=== PATIENT | female | born 1990 ===

== ENCOUNTER → 2016-03-29 | Outpatient (CLI) | payer OTHER ==
[~2016-03-29] MED LIST: MTR600X PO; OXYC-57 PO; PRENTAB26 PO
[2016-03-31 13:33] LABS: AFP CONCENTRATION 51.8 NG/ML; AFP MULTIPLE OF MEDIAN 1.37; AFPTS GESTATIONAL AGE 17.1 WEEKS; AFPTS INSULIN DEP DIABETIC? NO; AFPTS MATERNAL WT 151 LBS; ALPHA-FETOPROTEIN RACE CAUCASIAN=W; ESTRIOL MULTIPLE OF MEDIAN 0.94; HISTORY OF NTD NO; INHIBIN A 417 PG/ML; INHIBIN A MOM 2.52; REPEAT SAMPLE? NO; hCG MULTIPLE OF MEDIAN 0.63
== END | disposition home or self-care (01) ==
LOC: C.LAB1850 14:28
PROVIDERS: ATTEND Obstetrics & Gynecology
DX: Z34.82 Encounter for supervision of other normal pregnancy, second trimester (principal)

== ENCOUNTER 2016-06-10 18:37 | Outpatient (CLI) | payer OTHER ==
[~2016-06-10] VITALS: Ht 157.5 cm; Wt 75.8 kg
[2016-06-10] MEDS ORDERED: PRENTAB26 PO (19:45)
[2016-06-10 19:46] VITALS: Ht 157.5 cm; Wt 75.8 kg
== END 2016-06-10 19:50 | disposition home or self-care (01) ==
LOC: C.OBG 18:37 → C.OPB 18:37 → C.LD 19:00 → C.OPB 19:50
PROVIDERS: ATTEND Obstetrics & Gynecology
DX: Z34.82 Encounter for supervision of other normal pregnancy, second trimester (principal); Z3A.27 27 weeks gestation of pregnancy

== ENCOUNTER → 2016-06-18 | Outpatient (CLI) | payer OTHER ==
[2016-06-18 12:12] LABS: HEMATOCRIT 31.2 % (37-47)
[2016-06-18 14:05] LABS: GTGD 50 Grams
== END | disposition home or self-care (01) ==
LOC: C.LAB1850 09:38
PROVIDERS: ATTEND Obstetrics & Gynecology
DX: Z34.83 Encounter for supervision of other normal pregnancy, third trimester (principal)

== ENCOUNTER → 2016-06-18 | Outpatient (CLI) | payer OTHER ==
[2016-06-18 14:58] LABS: URINE APPEARANCE CLEAR (CLEAR); URINE BILIRUBIN NEG (NEG); URINE COLOR YELLOW; URINE EPITHELIAL CELL AUTO >30 /lpf (0-5); URINE NITRITE NEG (NEG); URINE PH 7.5 (4.5-7.5); URINE SPECIFIC GRAVITY 1.009 (1.000-1.030); UROBILINOGEN NEG (NEG)
[2016-06-18 15:05] LABS: MANUAL MICROSCOPIC REQUIRED? NO; REVIEW REQ? NO
== END | disposition home or self-care (01) ==
LOC: C.LABSPEC 13:41
PROVIDERS: ATTEND Obstetrics & Gynecology
DX: Z34.83 Encounter for supervision of other normal pregnancy, third trimester (principal)

== ENCOUNTER → 2016-08-12 | Outpatient (CLI) | payer OTHER | END | disposition home or self-care (01) | LOC: C.LABSPEC 17:43 | PROVIDERS: ATTEND Obstetrics & Gynecology | DX: Z34.83 Encounter for supervision of other normal pregnancy, third trimester (principal) ==

== ENCOUNTER 2016-08-25 08:47 | Inpatient (IN) | payer OTHER ==
[2016-08-25] VITALS (14 sets, daily range): BP systolic 104–118; BP diastolic 58–65; PULSE 55–68; TEMP 36.5–37.1; O2SAT 96–100; Wt 71.7 kg
[~2016-08-25 08:47] MED LIST changes: -MTR600X PO; -OXYC-57 PO
[2016-08-25] MEDS ORDERED: CITRIC ACID/SODIUM CITRATE 15 ML UDC PO ONE (09:00)
[2016-08-25] MEDS ORDERED: CEFAZOLIN IV 2,000 MG in DEXTROSE 5% 50ML 50 ML IV SCH (09:00)
--- NOTE | 2016-08-25 09:03 | History and Physical ---
History & Physical Date Aug 25, 2016. History of Present Illness The patient is a 26 year old female with complaints of rupture of membranes and acute onset of labor. She has a history of a prior section and wishes a repeat she does not wish to labor. Contractions are every several minutes pain as 10 out of 10 and she is leaking greenish fluid. Her has been uncomplicated normal testing normal ultrasound she desires a tubal as well. Medical history healthy and prepped surgical history section Medications vitamins Drug allergies none. Social history nonsmoker nondrinker Family history noncontributory. Physical exam vital signs are stable she is afebrile Chest exam clear. Cardiovascular exam normal rate and rhythm no audible murmur Abdominal exam gravid heart rate tones 1. Cervix 2 cm 90% greenish fluid leaking vertex position. Impression plan patient is ruptured membranes with active labor wishes repeat discussed the risks including but not limited to the risks of bleeding infection injury to bowel about bladder ureter vessels deep vein thrombosis pulmonary embolus and hernia discussed increased risks associated with a repeat section in labor Past Medical/Surgical History Medical Problems: (1) Amniotic fluid leaking (2) with 27 completed weeks gestation (3) PROM (premature rupture of membranes) Surgical Problems: (1) Previous delivery affecting Allergies Coded Allergies: No Known Allergies (Unverified , 06/10/16) Home Medications Scheduled Multivit/Min/Iron/Fol Ac/Pren ( Vitamin), 1 TAB PO DAILY
[2016-08-25] MEDS: LACTATED RINGER'S 1000ML 1,000 ML IV SCH ×2 (09:13→09:32)
[2016-08-25 09:30] LABS: BASO % 0.2 %; BASO ABS # 0.03 K/uL (0-0.2); COMPLETE YES; HEMATOCRIT 29.5 % (37-47); IG% 0.4 %; LYMPH % 25.7 %; LYMPH ABS # 3.36 K/uL (1.2-3.4); MEAN CELL VOLUME 82.4 fL (80-100); MEAN CORPUSCULAR HEMOGLOBIN 26.3 pg (25-34); MEAN CORPUSCULAR HGB CONC 31.9 g/dl (32-36); MEAN PLATELET VOLUME 10.6 fL (7.4-10.4); MONO % 6.5 %; NEUT % 66.2 %; PLATELET COUNT 396 K/uL (130-400); RED BLOOD COUNT 3.58 M/uL (4.2-5.4); WHITE BLOOD COUNT 13.07 K/uL (4.8-10.8)
[2016-08-25] MEDS ORDERED: FENTANYL CITRATE INJ 50 MCG/1 ML 2 ML VIAL ONE (09:43)
[2016-08-25] MEDS ORDERED: MoRPHine SULFATE PF 1 MG/ML 10 ML AMP/VIAL ONE (09:43)
[2016-08-25] MEDS ORDERED: PHENYLEPHRINE 100MCG/ML 5ML SYR ONE (10:26)
[2016-08-25] MEDS ORDERED: ONDANSETRON INJ 2 MG/ML 2 ML VIAL ONE (10:26)
[2016-08-25] MEDS ORDERED: KETOROLAC TROMETHAMINE 30 MG/ML VIAL ONE (10:26)
[2016-08-25] MEDS ORDERED: OXYTOCIN INJ 10 UNITS/ML VIAL ONE (10:26)
--- NOTE | 2016-08-25 10:55 | [facility] Operative Report ---
Operative Report Operative Date Aug 25, 2016. Pre-Operative Diagnosis 1. Previous Caesarean Section 2. PROM 3. Labor 4. Requests permanent sterilization Post-Operative Diagnosis Same Procedure(s) Performed 1. Repeat Caesarean Section for the of a viable male child at 1007. 2. Bilateral Tubal Ligation. Surgeon Dr. Gaines Property Management Accountant Surgeon(s) Dr. Canela Estimated Blood Loss 500cc Findings Before the procedure patient told me she desired tubal sterilization and discuss risks including failure and also irreversibility of of it she wishes to proceed with tubal ligation along with section. Patient taken to the operating room spinal anesthetic given by anesthesia for which catheter inserted into her bladder patient positioned in a supine position with a leftward tilt. Skin area tested with pickups with teeth and found to be adequate for incision prior Pfannenstiel incision used cutting with scalpel cutting down to subtendinous fat to the fascia and the midline fascia then dissected laterally with the curved Schafer scissors. Rectus muscle split peritoneal cavity entered in a superior location peritoneal cavity opening enlarged to allow exposure bladder retractor placed bladder flap dissected away with Metmonetbaums bladder retractor repositioned low transverse incision made with scalpel entry into the uterus done with a hemostat once in the uterus I was able to deliver the baby by elevating and then flexing the head and then pressure on the abdomen there was thin meconium mouth and then nares were suctioned with bulb Baby was then delivered with no excessive force with gentle traction and with the aid of the employee relations assistant pushing on the abdomen live vigorous male infant cord clamped and cut cord gases obtained cord blood obtained IV Pitocin started of note as well IV Ancef was given preoperatively Placenta was removed uterus exteriorized tone improved uterus was examined there was no remaining placenta no extensions uterus closed in the usual fashion running 0 Monocryl locked and a second reinforcing 0 Monocryl after generous irrigation of the cul-de-sac and bladder flap regions hemostasis was excellent. Tubal ligation performed first on the right fallopian tube using a [place] to grab the isthmic portion of the right fallopian tube O chromic was then used to ligate the tube this was then tied and a second 0 chromic was used to ligate the same tube tube section was then cut with Metzenbaums and sent to pathology as portion of right tube hemostasis was excellent the same process exactly was carried out on the left side Uterus was then placed back in the peritoneal cavity with visualization of the tubal sites and the uterine incision found to be hemostatic. Retractors removed fascia closed with 0 Vicryl subtendinous fat irrigated and closed with 2 -0 Vicryl skin then closed with 40 septic or Monocryl and Steri-Stripped sponginess were counts correct urine clear at the end of the procedure Specimens 1. Placenta: Hold 2. Cord blood obtained 3. Venous and Arterial Cord Gases obtained. Drains Jeter Anesthesia Spinal Complication(s) None Disposition L&D I attest to the content of the Intraoperative Record and any orders documented therein. Any exceptions are noted below.
[2016-08-25] MEDS ORDERED: KETOROLAC TROMETHAMINE 30 MG/ML VIAL IV. PRN ×2 (11:00→11:15)
[2016-08-25] MEDS ORDERED: DiphenhydrAMINE HCL 50 MG/ML VIAL IV PRN ×2 (11:00→11:15)
[2016-08-25] MEDS ORDERED: SENNA 8.6 MG TAB PO PRN (11:00)
[2016-08-25] MEDS ORDERED: DIPHTHERIA/TETANUS/PERTUSSIS 0.5 ML SYR/VIAL IM. ONE (11:00)
[2016-08-25] MEDS ORDERED: MAGNESIUM HYDROXIDE SUSP 30 ML UDC PO PRN (11:00)
[2016-08-25] MEDS ORDERED: HYDROCORTISONE ACETATE 25 MG SUPP PR PRN (11:00)
[2016-08-25] MEDS ORDERED: LANOLIN OINT EXT PRN ×2 (11:00)
[2016-08-25] MEDS ORDERED: SUPERCREAM 0.870 % 15GM JAR EXT PRN (11:00)
[2016-08-25] MEDS ORDERED: OXYCODONE/ACETAMINOPHEN 5-325 TAB PO PRN (11:00)
[2016-08-25] MEDS ORDERED: PROMETHAZINE HCL INJ 25 MG in SODIUM CHLORIDE 0.9% 50ML 50 ML IV PRN (11:00)
[2016-08-25] MEDS ORDERED: BENZOCAINE 20% AER SPR 82.5 GM CAN EXT PRN (11:00)
[2016-08-25] MEDS ORDERED: ONDANSETRON INJ 2 MG/ML 2 ML VIAL IV PRN ×2 (11:00→11:15)
[2016-08-25] MEDS ORDERED: NALOXONE HCL INJ 1 MG in SODIUM CHLORIDE 0.9% 1000ML 1,000 ML IV PRN (11:04)
[2016-08-25] MEDS ORDERED: NALOXONE HCL INJ 0.08 MG in SYRINGE 1.8 ML IV PRN (11:04)
[2016-08-25] MEDS ORDERED: LACTATED RINGER'S 1000ML 500 ML IV PRN (11:04)
[2016-08-25] MEDS ORDERED: SODIUM CHLORIDE 0.9% 1000ML 1,000 ML IV PRN (11:04)
--- NOTE | 2016-08-25 11:05 | Medical Student: [facility] ---
Operative Report Operative Date Aug 25, 2016. Pre-Operative Diagnosis Labor Contractions with premature rupture of membranes; prior C section Post-Operative Diagnosis same Procedure(s) Performed C section with bilateral tubal ligation Surgeon Dr. Gaines Pile Driving Setter Surgeon(s) Dr. Canela Estimated Blood Loss 500mL Findings Viable male Fluids (cc crystalloids) Lactated Ringers 1L Specimens Cord blood, placenta, piece of left fallopian tube, piece of right fallopian tube Drains Jeter Anesthesia Spinal Complication(s) None Disposition L&D
[2016-08-25] MEDS ORDERED: NO NARCOTICS OR SEDATIVES SCH (11:15)
[2016-08-25] MEDS ORDERED: NALOXONE HCL 0.4 MG/1 ML VIAL/CARP IV PRN (11:15)
[2016-08-25] MEDS ORDERED: NALBUPHINE HCL INJ 10 MG/ML AMP IV PRN (11:15)
[2016-08-25] MEDS ORDERED: EpHEDrine SULFATE INJ 50 MG/ML AMP IV PRN (11:15)
[2016-08-25] MEDS ORDERED: MoRPHine SULFATE 2 MG/ML CARP IV PRN (11:15)
[2016-08-25] MEDS ORDERED: PROMETHAZINE HCL INJ 6.25 MG in SODIUM CHLORIDE 0.9% 50ML 50 ML IV PRN (11:15)
[2016-08-25] MEDS ORDERED: MoRPHine SULFATE PF 1 MG/ML 10 ML AMP/VIAL EPI PRN (11:15)
[2016-08-25] MEDS: OXYTOCIN INJ 20 UNITS in LACTATED RINGER'S 1000ML 1,000 ML IV SCH ×2 (13:13→21:25)
[2016-08-25] MEDS: MEPERIDINE HCL 25 MG/ML CARP IV PRN ×2 (13:17→13:56)
--- NOTE | 2016-08-25 15:06 | Anesthesiology Progress Note ---
Anesthesia Post Op Note Date & Time Aug 25, 2016 at 15:05 Vital Signs Pain Intensity: 5.0 Vital Signs Past 12 Hours Date Time Temp Pulse Resp B/P (MAP) Pulse Ox O2 Delivery O2 Flow Rate FiO2 08/25/16 14:30 36.7 61 18 107/65 (79) 96 Room Air 08/25/16 14:00 36.5 55 18 107/65 (79) 97 Room Air 08/25/16 13:55 98 Room Air 08/25/16 13:55 98 Room Air 08/25/16 13:55 18 97 Notes Mental Status: alert / awake / arousable, participated in evaluation Pt Amnestic to Procedure: Yes Nausea / Vomiting: adequately controlled Pain: adequately controlled Airway Patency, RR, SpO2: stable & adequate BP & HR: stable & adequate Hydration State: stable & adequate Anesthetic Complications: no major complications apparent Patient was adequately warmed during procedure, however her rectal temp measured at <35C in recovery. A forced air warming blanket was placed over her legs for 1 hour, which only raised her rectal temp to 35-36. The patient said she felt very warm and had no signs of hypothermia. The akua hugger was removed and she was transferred to post .
[2016-08-25] MEDS: DOCUSATE SODIUM 100 MG CAP PO SCH (19:45)
[2016-08-25] MEDS: SIMETHICONE 80 MG CHEW PO SCH (19:46)
[2016-08-26] VITALS (7 sets, daily range): BP systolic 105–115; BP diastolic 61–65; PULSE 58–72; TEMP 36.5–36.8; O2SAT 95–100
[2016-08-26] MEDS ORDERED: DC INTRASPINAL MORPHINE SCH (02:00)
[2016-08-26 06:35] LABS: BASO % 0.2 %; BASO ABS # 0.02 K/uL (0-0.2); EOS % 0.9 %; HEMATOCRIT 25.9 % (37-47); IG% 0.5 %; LYMPH % 18.5 %; LYMPH ABS # 2.43 K/uL (1.2-3.4); MEAN CELL VOLUME 82.7 fL (80-100); MEAN CORPUSCULAR HEMOGLOBIN 27.2 pg (25-34); MEAN CORPUSCULAR HGB CONC 32.8 g/dl (32-36); MEAN PLATELET VOLUME 10.7 fL (7.4-10.4); MONO % 7.6 %; NEUT % 72.3 %; PLATELET COUNT 364 K/uL (130-400); RED BLOOD COUNT 3.13 M/uL (4.2-5.4); WHITE BLOOD COUNT 13.16 K/uL (4.8-10.8)
--- NOTE | 2016-08-26 06:55 | OB/GYN Progress Note ---
CRIMPER OPERATOR Progress Note Date of Service Aug 26, 2016. Subjective conversation w/ patient, physical exam, chart review, lab review Ambulation: limited ambulation (mostly to bathroom) Voiding: no voiding problems Passing Gas: Yes (no BM yet) Diet Tolerance: Regular Diet Lochia: Small Feeding Type: Breast Feeding Pain: Mild incisional regional pain Review of Systems Constitutional: No fever, No chills Respiratory: No cough, No shortness of breath Cardiac: No chest pain Abdomen: No nausea, No vomiting, No diarrhea Female : No dysuria Objective Vital Signs Date Time Temp Pulse Resp B/P (MAP) Pulse Ox O2 Delivery O2 Flow Rate FiO2 08/26/16 04:20 36.7 72 18 105/61 (76) 99 Room Air 08/26/16 02:00 18 97 08/26/16 01:00 18 99 08/26/16 00:00 16 99 08/25/16 23:10 97 Room Air 08/25/16 23:10 37.1 61 16 104/60 (75) 97 Room Air 08/25/16 23:00 16 97 08/25/16 22:00 16 99 08/25/16 21:00 20 99 08/25/16 20:00 18 98 08/25/16 19:50 36.8 68 18 105/60 (75) 98 Room Air 08/25/16 19:15 18 99 08/25/16 18:00 20 99 08/25/16 17:00 20 100 08/25/16 16:00 18 96 08/25/16 16:00 36.6 63 18 118/58 (78) 96 Room Air 08/25/16 16:00 96 Room Air 08/25/16 15:00 18 98 08/25/16 14:30 36.7 61 18 107/65 (79) 96 Room Air 08/25/16 14:00 36.5 55 18 107/65 (79) 97 Room Air 08/25/16 13:55 98 Room Air 08/25/16 13:55 98 Room Air 08/25/16 13:55 18 97 Physical Exam General Appearance: WELL-APPEARING, WD/WN, NO APPARENT DISTRESS Respiratory/Chest: lungs clear, normal breath sounds Cardiovascular: regular rate, rhythm Abdomen: normal bowel sounds, soft (non-distended), + tenderness (around RLQ lateral to incision, no tenderness to percussion superiorly) Fundus: Firm, Relation to Umbilicus (approx one down) Incision Description: Clean, Dry & Intact (dressing in place, c/d/i) Extremities: normal range of motion, non-tender, no calf tenderness, + pedal edema (right ankle almost 1+ edema (pt states identical to throughout ) ; no LLE notable edema) Laboratory Results Last 24 Hours Test 08/25/16 09:13 08/26/16 06:06 White Blood Count 13.07 K/uL 13.16 K/uL Red Blood Count 3.58 M/uL 3.13 M/uL Hemoglobin 9.4 g/dL 8.5 g/dL Hematocrit 29.5 % 25.9 % Mean Corpuscular Volume 82.4 fL 82.7 fL Mean Corpuscular Hemoglobin 26.3 pg 27.2 pg Mean Corpuscular Hemoglobin Concent 31.9 g/dl 32.8 g/dl Platelet Count 396 K/uL 364 K/uL Mean Platelet Volume 10.6 fL 10.7 fL Neutrophils (%) (Auto) 66.2 % 72.3 % Lymphocytes (%) (Auto) 25.7 % 18.5 % Monocytes (%) (Auto) 6.5 % 7.6 % Eosinophils (%) (Auto) 1.0 % 0.9 % Basophils (%) (Auto) 0.2 % 0.2 % Neutrophils # (Auto) 8.65 K/uL 9.53 K/uL Lymphocytes # (Auto) 3.36 K/uL 2.43 K/uL Monocytes # (Auto) 0.85 K/uL 1.00 K/uL Eosinophils # (Auto) 0.13 K/uL 0.12 K/uL Basophils # (Auto) 0.03 K/uL 0.02 K/uL RDW Standard Deviation 43.1 fL 43.5 fL RDW Coefficient of Variation 14.2 % 14.3 % Immature Granulocyte % (Auto) 0.4 % 0.5 % Immature Granulocyte # (Auto) 0.05 K/uL 0.06 K/uL Assessment and Plan Post-, Post-Op Day Number: 1 Continue Routine Care: 26yo s/p repeat and now tubal ligation, PPD #1. - Blood type B pos. GBS negative. Rubella immune. - Vital signs reviewed and stable. - S/p spinal anesthesia. No PO pain meds yet. - Minimal right ankle swelling, reportedly unchanged from prepartum time. No calf ttp or difficulties with movement. Encourage ambulation. - Encourage breast feeding. - Jeter out, no difficulty with s/p voiding. - Hemoglobin pre-op 9.4. Post-op 8.5 Continue to monitor clinically. - Continue routine post delivery care. - Pt agreed with above plan, all current questions answered. Gerard Canela MD, PGY1 Steward/Stewardess Club Car Physician Supervision Note: I interviewed and examined the patient. Discussed with Dr. Canela and agree with findings and plan as documented in the note. Any exceptions or clarifications are listed here: [None] Documented By: Lucien Gaines Resident Tracking Resident Involvement: Resident Care Provided Care Provided: OB Delivery (morning rounds)
[2016-08-26 07:10] LABS: ANISOCYTOSIS PRESENT; COMPLETE YES; MICROCYTOSIS PRESENT; POIKILOCYTOSIS PRESENT
[2016-08-26] MEDS: DOCUSATE SODIUM 100 MG CAP PO SCH ×2 (07:58→19:40)
[2016-08-26] MEDS: PRENATAL VITAMIN TAB PO SCH (07:58)
[2016-08-26] MEDS: SIMETHICONE 80 MG CHEW PO SCH ×3 (07:58→19:40)
[2016-08-26] MEDS: FERROUS SULFATE 325 MG TAB PO SCH (07:58)
[2016-08-26] MEDS: OXYCODONE/ACETAMINOPHEN 5-325 TAB PO PRN ×2 (10:46→19:41)
[2016-08-26] MEDS: IBUPROFEN 600 MG TAB PO PRN ×2 (10:46→19:40)
[2016-08-26] MEDS ORDERED: BISACODYL 5 MG TABEC ONE (19:38)
[2016-08-26] MEDS ORDERED: BISACODYL 5 MG TABEC PO ONE (22:00)
[2016-08-27] MEDS: IBUPROFEN 600 MG TAB PO PRN ×2 (04:04→08:14)
[2016-08-27] MEDS: OXYCODONE/ACETAMINOPHEN 5-325 TAB PO PRN ×2 (04:05→08:14)
--- NOTE | 2016-08-27 06:24 | OB/GYN Progress Note ---
SENIOR MATERIALS SCIENTIST Progress Note Date of Service Aug 27, 2016. Subjective conversation w/ patient, physical exam, chart review, lab review Ambulation: ambulating normally Voiding: no voiding problems Passing Gas: Yes Diet Tolerance: Regular Diet Lochia: Small Feeding Type: Bottle Feeding Pain: Says incisional regional pain improved Review of Systems Constitutional: No fever, No chills Respiratory: No cough, No shortness of breath Cardiac: No chest pain Abdomen: No nausea, No vomiting, No diarrhea Female : No dysuria Objective Vital Signs Date Time Temp Pulse Resp B/P (MAP) Pulse Ox O2 Delivery O2 Flow Rate FiO2 08/26/16 22:40 Room Air 08/26/16 22:40 36.5 58 16 115/65 (82) 95 Room Air 08/26/16 15:30 100 Room Air 08/26/16 15:30 36.5 64 18 114/62 (79) 100 Room Air 64 08/26/16 08:00 Room Air 08/26/16 07:18 36.8 60 16 113/63 (80) 98 Room Air Physical Exam General Appearance: WELL-APPEARING, WD/WN, NO APPARENT DISTRESS Respiratory/Chest: lungs clear, normal breath sounds Cardiovascular: regular rate, rhythm Abdomen: normal bowel sounds, non tender, soft Fundus: Firm, Tender (mild midline-low abd ttp), Relation to Umbilicus (approx two down) Incision Description: Clean, Dry & Intact (no incision erythema, steristrips in place) Extremities: normal range of motion, non-tender, normal inspection, no calf tenderness, + pedal edema (improved (now minimal) right ankle edema) Laboratory Results Last 24 Hours Test 08/27/16 06:00 Assessment and Plan Post-, Post-Op Day Number: 2 Continue Routine Care: Resident Physician Supervision Note: I was present with Dr. Canela during the history and exam. I discussed the case with the resident and agree with the findings and plan as documented in the note. Any exceptions or clarifications are listed here: [None] Documented By: Adela Escalera 26yo s/p repeat and now tubal ligation, PPD #2. - Blood type B pos. GBS negative. Rubella immune. - Vital signs reviewed and stable. - Pain controlled with Motrin and Percocet. - Has improved right ankle edema (hx same prepartum). No calf pain/ttp or generalized RLE swelling. Ongoing ambulation encouragement. - Pt wishes to bottle feed only. - Hemoglobin 9.4 (pre) & 8.5 (post-). Continue to monitor clinically. - Continue routine post delivery care. - Pt agreed with above plan, all current questions answered. Gerard Canela MD, PGY1 Shipping Processor Tracking Resident Involvement: Resident Care Provided Care Provided: OB Delivery (morning rounds)
[2016-08-27 06:51] LABS: HEMATOCRIT 24.9 % (37-47)
[2016-08-27 07:15] VITALS: BP 98/50; PULSE 67; TEMP 36.8; O2SAT 98
[2016-08-27] MEDS ORDERED: MTR600X PO (07:39)
[2016-08-27] MEDS ORDERED: OXYC-57 PO (07:39)
--- NOTE | 2016-08-27 07:49 | Discharge Instructions ---
Discharge Instructions Date of Service Aug 27, 2016. Admission Reason for Admission: Ruptured Membranes - History Of Section Discharge Discharge Diagnosis / Problem: recovery from section Discharge Goals Goal(s): Routine recovery after Medications Continue Dispensed Medications: lansinoh Activity Recommendations Activity Limitations: per Instructions/Follow-up section . Instructions / Follow-Up Instructions / Follow-Up ACTIVITY RECOMMENDATIONS: * Gradual return to full activity over the next 2-3 weeks. * No lifting - nothing heavier than baby over the next 2-3 weeks. * Do not engage in vigorous exercise, sexual activity or sports until cleared by your physician. * Do not drive or operate any motorized equipment until cleared by your physician. * You may shower/bathe daily. MEDICATIONS: For discomfort or pain, you may use Acetaminophen (Tylenol), Ibuprofen (Advil), or Naproxen (Aleve) following the package directions. For constipation you may use Colace following the package directions. BREAST CARE: If you are not breast feeding: * Wear a supportive bra 24 hours a day for one to two weeks. * Avoid stimulating your breasts and nipples as much as possible during the first few weeks after delivery. * When taking a shower, have the warm water hit your back, not breasts. * When your breasts feel full, apply ice packs. Usually three to four times a day helps ease the discomfort. * Take a mild pain medication (Tylenol / Motrin) when you are uncomfortable. If breast feeding: * Use breast milk to lubricate nipples. Lansinoh cream may be used for sore nipples. You do not need to remove cream prior to breast feeding. If using a different brand of cream, check the label for directions regarding removal of cream prior to nursing. * Wear a supportive bra. * If having problems with breasts or breast feeding, call a marketing sales consultant or your health care provider. SPECIAL CARE INSTRUCTIONS: When you are discharged from the hospital, it is important for you to follow the instructions listed below: * During the first week at home, you should be able to care for yourself and your baby. In addition, the usual light household activities are encouraged. * Limit your activities to the way you feel. Do not try to clean the house or move furniture. Be sensible. * If you actively engage in sports and have done so up until the time of your delivery, you may resume these activities as soon as you feel able. This may take up to one month or even longer. Use good judgment. * Continue to take your vitamins for at least six weeks after the of your baby. * Your diet need not be limited unless you were on a special diet before your delivery. Breast-feeding mothers need around 2500 calories per day and at least 64-80 ounces of fluid per day (8 to 10 glasses). * You should eat foods from the four major food groups. Crash diets or fad diets are to be avoided. Eating lean meats, fresh fruits and vegetables, low-fat dairy products, high fiber foods and a regular exercise program, will help you get back to your pre- weight without putting your health at risk. * Constipation is sometimes a problem after delivery. Take a mild laxative as needed. If breast feeding, Milk of Magnesia is acceptable to use. You may use a suppository or Fleets enema. * A daily shower or tub bath is suggested. Wash incision daily with warm soapy water and pat dry. It doesn't need to be covered unless drainage is present. * A bloody vaginal discharge will usually continue until around four weeks . A small amount of bleeding may continue for as long as six weeks. Vaginal discharge changes from the bright red bleeding after delivery to pink then brownish and finally yellowish-pink before becoming white and disappearing. * Bleeding may increase with activity. Your first period may come in 4-8 weeks. If you are breast feeding, your period may be delayed even longer. * [place] (sex) can begin whenever both you and your partner feel comfortable and do not have any form of genital infection. It is recommended that you wait at least six weeks for internal and external healing to occur. If you have questions, please talk to your health care practitioner. A condom should be used to prevent infection and . * Foreplay, gentle intercourse and lubrication is very important the first several times to prevent pain. A water-based lubricant such as K-Y jelly or Astroglide may be used. * If you have RH negative blood and your baby is RH positive, you will receive RHOGAM by injection prior to discharge. The nurse will give you a card to keep with you that has the date and place that you received RHOGAM after delivery. * During your care, you had a Rubella screen done to check for the presence of rubella antibodies in your blood. If your test was negative, you will receive a Rubella vaccine prior to discharge. This vaccine may cause a fever, soreness at the injection site and flu-like symptoms. If these symptoms persist, notify your health care practitioner. is not advised for one month after a Rubella vaccine. * Verbalizes understanding of car seat law as reviewed with patient nursing. * Car Seat hand-out given and reviewed with patient by nursing. * Shaken baby information reviewed with patient by nursing. Call you doctor if: * Heavy bleeding (saturating several pads an hour) or passing clots the size of your fist. * A fever >101 degrees F (38.3 degrees C) on two occasions four hours apart and /or chills. * Unusual pain in the pelvic or vaginal areas. * Call the doctor for any increased redness, drainage or swelling around the incision and any pain unrelieved by prescribed pain medication. * "Baby Blues" lasting longer than two weeks. If you have any questions or concerns, call your health care practitioner at . FOLLOW UP VISIT: * Please call the office at to schedule a 6 week examination. It is important you keep this appointment. It is important for you to make arrangements for either yearly or twice yearly check-ups thereafter. Current Hospital Diet ACTIVITY RECOMMENDATIONS: * Gradual return to full activity over the next 2-3 weeks. * No lifting - nothing heavier than baby over the next 2-3 weeks. * Do not engage in vigorous exercise, sexual activity or sports until cleared by your physician. * Do not drive or operate any motorized equipment until cleared by your physician. * You may shower/bathe daily. MEDICATIONS: For discomfort or pain, you may use Acetaminophen (Tylenol), Ibuprofen (Advil), or Naproxen (Aleve) following the package directions. For constipation you may use Colace following the package directions. BREAST CARE: If you are not breast feeding: * Wear a supportive bra 24 hours a day for one to two weeks. * Avoid stimulating your breasts and nipples as much as possible during the first few weeks after delivery. * When taking a shower, have the warm water hit your back, not breasts. * When your breasts feel full, apply ice packs. Usually three to four times a day helps ease the discomfort. * Take a mild pain medication (Tylenol / Motrin) when you are uncomfortable. If breast feeding: * Use breast milk to lubricate nipples. Lansinoh cream may be used for sore nipples. You do not need to remove cream prior to breast feeding. If using a different brand of cream, check the label for directions regarding removal of cream prior to nursing. * Wear a supportive bra. * If having problems with breasts or breast feeding, call a marketing sales consultant or your health care provider. SPECIAL CARE INSTRUCTIONS: When you are discharged from the hospital, it is important for you to follow the instructions listed below: * During the first week at home, you should be able to care for yourself and your baby. In addition, the usual light household activities are encouraged. * Limit your activities to the way you feel. Do not try to clean the house or move furniture. Be sensible. * If you actively engage in sports and have done so up until the time of your delivery, you may resume these activities as soon as you feel able. This may take up to one month or even longer. Use good judgment. * Continue to take your vitamins for at least six weeks after the of your baby. * Your diet need not be limited unless you were on a special diet before your delivery. Breast-feeding mothers need around 2500 calories per day and at least 64-80 ounces of fluid per day (8 to 10 glasses). * You should eat foods from the four major food groups. Crash diets or fad diets are to be avoided. Eating lean meats, fresh fruits and vegetables, low-fat dairy products, high fiber foods and a regular exercise program, will help you get back to your pre- weight without putting your health at risk. * Constipation is sometimes a problem after delivery. Take a mild laxative as needed. If breast feeding, Milk of Magnesia is acceptable to use. You may use a suppository or Fleets enema. * A daily shower or tub bath is suggested. Wash incision daily with warm soapy water and pat dry. It doesn't need to be covered unless drainage is present. * A bloody vaginal discharge will usually continue until around four weeks . A small amount of bleeding may continue for as long as six weeks. Vaginal discharge changes from the bright red bleeding after delivery to pink then brownish and finally yellowish-pink before becoming white and disappearing. * Bleeding may increase with activity. Your first period may come in 4-8 weeks. If you are breast feeding, your period may be delayed even longer. * [place] (sex) can begin whenever both you and your partner feel comfortable and do not have any form of genital infection. It is recommended that you wait at least six weeks for internal and external healing to occur. If you have questions, please talk to your health care practitioner. A condom should be used to prevent infection and . * Foreplay, gentle intercourse and lubrication is very important the first several times to prevent pain. A water-based lubricant such as K-Y jelly or Astroglide may be used. * If you have RH negative blood and your baby is RH positive, you will receive RHOGAM by injection prior to discharge. The nurse will give you a card to keep with you that has the date and place that you received RHOGAM after delivery. * During your care, you had a Rubella screen done to check for the presence of rubella antibodies in your blood. If your test was negative, you will receive a Rubella vaccine prior to discharge. This vaccine may cause a fever, soreness at the injection site and flu-like symptoms. If these symptoms persist, notify your health care practitioner. is not advised for one month after a Rubella vaccine. * Verbalizes understanding of car seat law as reviewed with patient nursing. * Car Seat hand-out given and reviewed with patient by nursing. * Shaken baby information reviewed with patient by nursing. Call you doctor if: * Heavy bleeding (saturating several pads an hour) or passing clots the size of your fist. * A fever >101 degrees F (38.3 degrees C) on two occasions four hours apart and /or chills. * Unusual pain in the pelvic or vaginal areas. * Call the doctor for any increased redness, drainage or swelling around the incision and any pain unrelieved by prescribed pain medication. * "Baby Blues" lasting longer than two weeks. If you have any questions or concerns, call your health care practitioner at . FOLLOW UP VISIT: * Please call the office at to schedule a 6 week examination. It is important you keep this appointment. It is important for you to make arrangements for either yearly or twice yearly check-ups thereafter. Patient's current hospital diet: Regular OB Diet Discharge Diet Recommended Diet: Regular OB Diet Procedures Procedures Performed: 1. Repeat Caesarean Section for the of a viable male child at 1007. 2. Bilateral Tubal Ligation. Pending Studies Studies pending at discharge: yes List of pending studies: pathology of bilatera Fallopian tube segments Medical Emergencies . Who to Call and When: Medical Emergencies: If at any time you feel your situation is an emergency, please call 911 immediately. . Non-Emergent Contact Non-Emergency issues call your: Representative . . "Provider Documentation" section prepared by Adela Escalera. . VTE Core Measure Inpt VTE Proph given/why not?: Treatment not indicated
[2016-08-27] MEDS: SIMETHICONE 80 MG CHEW PO SCH (08:14)
[2016-08-27] MEDS: PRENATAL VITAMIN TAB PO SCH (08:14)
[2016-08-27] MEDS: FERROUS SULFATE 325 MG TAB PO SCH (08:14)
[2016-08-27] MEDS: DOCUSATE SODIUM 100 MG CAP PO SCH (08:14)
[2016-08-27] MEDS ORDERED: BISACODYL 10 MG SUPP PR PRN (11:00)
[2016-08-27 11:12] VITALS: BP_DIAS 50; PULSE 67; TEMP 36.8
== END 2016-08-27 11:15 | disposition home or self-care (01) | DRG 766 ==
LOC: C.LD 08:47 → C.OBG 13:53 → EDSTATUS 08-30 07:30
PROVIDERS: ADMIT Obstetrics & Gynecology; ATTEND Obstetrics & Gynecology
PROC: 10D00Z1 Extraction of Products of Conception, Low, Open Approach (ICD-10-PCS; principal; 2016-08-25 10:48)
PROC: 0UB70ZZ Excision of Bilateral Fallopian Tubes, Open Approach (ICD-10-PCS; principal; 2016-08-25 10:48)
DX: O42.92 Full-term premature rupture of membranes, unspecified as to length of time between rupture and onset of labor (principal); O99.02 Anemia complicating childbirth; D64.9 Anemia, unspecified; O34.219 Maternal care for unspecified type scar from previous cesarean delivery; N85.8 Other specified noninflammatory disorders of uterus; Z30.2 Encounter for sterilization; Z37.0 Single live birth; Z3A.38 38 weeks gestation of pregnancy